=== PATIENT | male | born 1955 | race Hispanic/Latino ===

== ENCOUNTER → 2018-03-27 | Outpatient (CLI) | payer OTHER ==
[~2018-03-27] MED LIST: CLOT15CR62 TP; ESOM20CA39 PO; LEVO50TA11 PO; ONDA8TAB12 PO
== END | disposition home or self-care (01) ==
LOC: RAH 14:12
PROVIDERS: ATTEND Family Medicine
DX: M79.89 Other specified soft tissue disorders (principal)
CPT/HCPCS: 93971

== ENCOUNTER 2018-04-13 12:10 | Inpatient (IN) | payer OTHER ==
[~2018-04-13] VITALS: Ht 172.7 cm; Wt 123.3 kg
[2018-04-13 13:20] LABS: BASOPHILS % (AUTO) 0.2 % (0.0-5.0); EOSINOPHILS % (AUTO) 0.3 % (0.0-8.0); HEMATOCRIT 37.4 % (42-54); LYMPHOCYTES % (AUTO) 11.5 % (21.0-51.0); MEAN CORPUSCULAR HEMOGLOBIN 27.3 pg (27.0-33.0); MEAN CORPUSCULAR HGB CONC 32.6 g/dL (32.0-36.0); MEAN CORPUSCULAR VOLUME 83.7 fL (79-99); MONOCYTES % (AUTO) 5.2 % (3.0-13.0); NEUTROPHILS % (AUTO) 82.8 % (40.0-77.0); PLATELET COUNT (AUTO) 169 K/uL (130-400); RED BLOOD CELL COUNT(AUTO) 4.47 MIL/uL (4.50-6.20); RED CELL DISTRIBUTION WIDTH 15.9 % (11.0-15.5); WHITE BLOOD COUNT (AUTO) 6.4 K/uL (4.8-10.8)
[2018-04-13 13:36] LABS: CREATININE 1.9 mg/dL (0.5-1.5); INR 1.44 (0.85-1.15); PARTIAL THROMBOPLASTIN TIME 34.1 SEC (26.3-35.5); POTASSIUM 3.6 mmol/L (3.5-5.1)
[2018-04-13 13:38] LABS: BILIRUBIN,TOTAL 1.9 mg/dL (0.2-1.0); TOTAL PROTEIN, SERUM 4.8 g/dL (6.0-8.3)
[2018-04-13] MEDS ORDERED: SODIUM CHLORIDE 0.9% 1000ML 2,000 ML IV ONE (15:55)
[2018-04-13] MEDS ORDERED: SODIUM CHLORIDE 0.9% 1000ML 1,000 ML IV ONE (19:30)
[2018-04-13] MEDS: LEVOFLOXACIN 500 MG/D5W 100 ML 100 ML IV SCH (20:00)
[2018-04-13] MEDS: METRONIDAZOLE 500 MG TABLET PO SCH (21:00)
[2018-04-13] MEDS ORDERED: METRONIDAZOLE 500 MG TABLET ONE (21:40)
[2018-04-13] MEDS ORDERED: LEVOFLOXACIN 500 MG/D5W 100 ML 100 ML ONE (21:40)
[2018-04-13 22:46] VITALS: BP 147/78
[2018-04-14] MEDS ORDERED: LEVO50TA11 PO (01:27)
[2018-04-14] MEDS ORDERED: CLOT15CR62 TP (01:27)
[2018-04-14] MEDS ORDERED: ONDA8TAB12 PO (01:27)
[2018-04-14] MEDS ORDERED: ESOM20CA39 PO (01:27)
[2018-04-14 04:00] VITALS: BP 135/90
[2018-04-14 04:46] LABS: BASOPHILS % (AUTO) 0.7 % (0.0-5.0); EOSINOPHILS % (AUTO) 0.3 % (0.0-8.0); HEMATOCRIT 31.2 % (42-54); LYMPHOCYTES % (AUTO) 11.6 % (21.0-51.0); MEAN CORPUSCULAR HEMOGLOBIN 28.4 pg (27.0-33.0); MEAN CORPUSCULAR HGB CONC 33.9 g/dL (32.0-36.0); MEAN CORPUSCULAR VOLUME 83.7 fL (79-99); MONOCYTES % (AUTO) 4.9 % (3.0-13.0); NEUTROPHILS % (AUTO) 82.5 % (40.0-77.0); PLATELET COUNT (AUTO) 180 K/uL (130-400); RED BLOOD CELL COUNT(AUTO) 3.73 MIL/uL (4.50-6.20); RED CELL DISTRIBUTION WIDTH 16.1 % (11.0-15.5); WHITE BLOOD COUNT (AUTO) 6.6 K/uL (4.8-10.8)
[2018-04-14 05:01] LABS: ALBUMIN 1.6 g/dL (3.5-5.0); POTASSIUM 3.5 mmol/L (3.5-5.1); TOTAL PROTEIN, SERUM 4.1 g/dL (6.0-8.3)
[2018-04-14 05:14] LABS: BILIRUBIN,TOTAL 1.6 mg/dL (0.2-1.0); CREATININE 1.8 mg/dL (0.5-1.5)
[2018-04-14 07:00] VITALS: BP 140/82
[2018-04-14] MEDS ORDERED: ENOXAPARIN SODIUM 40 MG/0.4 ML SYRINGE SQ SCH (09:00)
[2018-04-14] MEDS: PANTOPRAZOLE SODIUM 40 MG TABLET.DR PO SCH (10:36)
[2018-04-14] MEDS: METRONIDAZOLE 500 MG TABLET PO SCH ×3 (10:36→22:06)
[2018-04-14] MEDS: FUROSEMIDE 10 MG/ML 2ML VIAL IV SCH ×2 (10:37→22:07)
[2018-04-14 11:00] VITALS: BP 116/74
[2018-04-14 16:00] VITALS: BP 117/70
[2018-04-14] MEDS ORDERED: DIATR MEGLU/DIATRIZOATE SODIUM 30 ML BOTTLE ONE (18:21)
[2018-04-14 19:15] VITALS: BP 156/87
[2018-04-14] MEDS: LEVOFLOXACIN 500 MG/D5W 100 ML 100 ML IV SCH (22:06)
[2018-04-15] VITALS (16 sets, daily range): BP systolic 100–161; BP diastolic 60–87
[2018-04-15 05:45] LABS: BASOPHILS % (AUTO) 0.2 % (0.0-5.0); EOSINOPHILS % (AUTO) 0.3 % (0.0-8.0); HEMATOCRIT 36.5 % (42-54); LYMPHOCYTES % (AUTO) 15.7 % (21.0-51.0); MEAN CORPUSCULAR HEMOGLOBIN 27.9 pg (27.0-33.0); MEAN CORPUSCULAR HGB CONC 33.4 g/dL (32.0-36.0); MEAN CORPUSCULAR VOLUME 83.7 fL (79-99); MONOCYTES % (AUTO) 5.4 % (3.0-13.0); NEUTROPHILS % (AUTO) 78.4 % (40.0-77.0); NUCLEATED RED BLOOD CELLS 0.1 % (0.0-0.19); PLATELET COUNT (AUTO) 154 K/uL (130-400); RED BLOOD CELL COUNT(AUTO) 4.35 MIL/uL (4.50-6.20); RED CELL DISTRIBUTION WIDTH 16.2 % (11.0-15.5); WHITE BLOOD COUNT (AUTO) 7.7 K/uL (4.8-10.8)
[2018-04-15 05:56] LABS: ALBUMIN 1.9 g/dL (3.5-5.0); BILIRUBIN,TOTAL 1.9 mg/dL (0.2-1.0); CREATININE 2.1 mg/dL (0.5-1.5); POTASSIUM 3.4 mmol/L (3.5-5.1); TOTAL PROTEIN, SERUM 4.9 g/dL (6.0-8.3)
[2018-04-15] MEDS ORDERED: PROPOFOL 10 MG/ML 20ML VIAL IV ONE (08:22)
[2018-04-15] MEDS ORDERED: ONDANSETRON HCL 4 MG/2 ML VIAL ONE ×2 (08:49→11:05)
[2018-04-15] MEDS ORDERED: POTASSIUM CHLORIDE 20 MEQ ERTAB PO SCH ×2 (09:30→12:30)
[2018-04-15] MEDS: PANTOPRAZOLE SODIUM 40 MG TABLET.DR PO SCH (10:37)
[2018-04-15] MEDS: METRONIDAZOLE 500 MG TABLET PO SCH ×3 (10:37→20:58)
[2018-04-15] MEDS: FUROSEMIDE 10 MG/ML 2ML VIAL IV SCH ×2 (10:38→20:58)
[2018-04-15] MEDS: HYDROCODONE/ACETAMINOPHEN 5/325 MG TAB PO PRN (10:39)
[2018-04-15] MEDS ORDERED: ONDANSETRON HCL MDV 20ML 2 MG/ML VIAL IVP PRN (11:00)
[2018-04-15] MEDS: CHOLESTYRAMINE PACKET 4 GM PACKET PO SCH (17:06)
[2018-04-15] MEDS: LEVOFLOXACIN 500 MG/D5W 100 ML 100 ML IV SCH (20:58)
[2018-04-16 03:50] VITALS: BP 128/81
[2018-04-16 08:26] VITALS: BP 102/60
[2018-04-16] MEDS ORDERED: POTASSIUM CHLORIDE 20 MEQ ERTAB PO SCH (09:00)
[2018-04-16] MEDS ORDERED: GLUCAGON 1MG KIT 1 MG ML IM PRN (09:30)
[2018-04-16] MEDS ORDERED: DEXTROSE 50%-WATER 50 ML DISP.SYRIN IV PRN (09:30)
[2018-04-16 09:33] LABS: ABG BASE EXCESS -8.3 mmol/L (-2.0-3.0); ABG HCO3 14.8 mmol/L (21.0-28.0); ABG OXYGEN SATURATION 99.1 % (95.0-99.0); ABG PCO2 25 mmHg (35-48)
[2018-04-16] MEDS ORDERED: IPRATROPIUM/ALBUTEROL SULFATE 3 ML SOLUTION IH ONE (09:40)
[2018-04-16 09:53] LABS: CARBON DIOXIDE 17 mmol/L (21-32); CHLORIDE 103 mmol/L (101-111); CREATINE KINASE, TOTAL 62 U/L (21-232); CREATININE 2.4 mg/dL (0.5-1.5); GLOMERULAR FILTR. RATE CALC 29 mL/min (>60); GLUCOSE,RANDOM 101 mg/dL (70-105); HEMATOCRIT 35.9 % (42-54); MEAN CORPUSCULAR HEMOGLOBIN 28.4 pg (27.0-33.0); MEAN CORPUSCULAR HGB CONC 33.8 g/dL (32.0-36.0); MEAN CORPUSCULAR VOLUME 84.3 fL (79-99); MYOGLOBIN 165 ng/mL (10-92); PLATELET COUNT (AUTO) 197 K/uL (130-400); POTASSIUM 3.8 mmol/L (3.5-5.1); RED BLOOD CELL COUNT(AUTO) 4.25 MIL/uL (4.50-6.20); RED CELL DISTRIBUTION WIDTH 16.3 % (11.0-15.5); SODIUM SERUM 134 mmol/L (136-145); TROPONIN I < 0.04 ng/mL (0.00-0.06); UREA NITROGEN, BLOOD 45 mg/dL (7-18)
[2018-04-16] MEDS: PANTOPRAZOLE SODIUM 40 MG TABLET.DR PO SCH (09:57)
[2018-04-16] MEDS: FUROSEMIDE 10 MG/ML 2ML VIAL IV SCH (09:58)
[2018-04-16] MEDS: METRONIDAZOLE 500 MG TABLET PO SCH ×3 (09:58→20:44)
[2018-04-16] MEDS: CHOLESTYRAMINE PACKET 4 GM PACKET PO SCH (09:59)
[2018-04-16] MEDS: SODIUM CHLORIDE 0.9% 1000ML 1,000 ML IV SCH (10:00)
[2018-04-16] MEDS ORDERED: IPRATROPIUM/ALBUTEROL SULFATE 3 ML SOLUTION IH SCH (12:00)
[2018-04-16 12:52] VITALS: BP 108/67
[2018-04-16] MEDS ORDERED: RENAL DOSE IV PRN (16:15)
[2018-04-16] MEDS ORDERED: SODIUM CHLORIDE 0.9% 1000ML 1,000 ML IV SCH (16:30)
[2018-04-16] MEDS ORDERED: VANCOMYCIN HCL 1 GM VIAL IV SCH (16:30)
[2018-04-16 16:55] VITALS: BP 117/86
[2018-04-16] MEDS: SODIUM BICARBONATE 650 MG TAB PO SCH ×2 (17:10→20:44)
[2018-04-16] MEDS: ALBUMIN (HUMAN) 25% 100 ML IV SCH ×2 (17:11→23:26)
[2018-04-16] MEDS ORDERED: VANCOMYCIN PROTOCOL PER PHARMACY IV SCH (19:15)
[2018-04-16 19:25] VITALS: BP 99/53
[2018-04-16 19:28] VITALS: BP 124/65
[2018-04-16] MEDS: LEVOFLOXACIN 500 MG/D5W 100 ML 100 ML IV SCH (20:44)
[2018-04-16] MEDS: LEVETIRACETAM 250 MG TABLET PO SCH (20:44)
[2018-04-16] MEDS: LOPERAMIDE HCL 2 MG CAP PO PRN (20:44)
[2018-04-16] MEDS: HYDROCODONE/ACETAMINOPHEN 5/325 MG TAB PO PRN (20:50)
[2018-04-17 00:22] VITALS: BP 110/60
[2018-04-17 03:25] VITALS: BP 96/60
[2018-04-17 05:07] LABS: HEMATOCRIT 26.2 % (42-54); MEAN CORPUSCULAR HEMOGLOBIN 28.5 pg (27.0-33.0); MEAN CORPUSCULAR HGB CONC 34.2 g/dL (32.0-36.0); MEAN CORPUSCULAR VOLUME 83.4 fL (79-99); NUCLEATED RED BLOOD CELLS 0.1 % (0.0-0.19); PLATELET COUNT (AUTO) 114 K/uL (130-400); RED BLOOD CELL COUNT(AUTO) 3.15 MIL/uL (4.50-6.20); RED CELL DISTRIBUTION WIDTH 16.1 % (11.0-15.5); WHITE BLOOD COUNT (AUTO) 8.5 K/uL (4.8-10.8)
[2018-04-17 05:29] LABS: ALBUMIN 2.2 g/dL (3.5-5.0); BILIRUBIN,TOTAL 1.8 mg/dL (0.2-1.0); CREATININE 2.5 mg/dL (0.5-1.5); MAGNESIUM 1.9 mg/dL (1.80-2.40); PHOSPHORUS 4.5 mg/dL (2.5-4.9); THYROID STIMULATING HORMONE 11.64 uIU/mL (0.36-3.74); TOTAL PROTEIN, SERUM 4.3 g/dL (6.0-8.3); URIC ACID 9.4 mg/dL (2.6-7.2)
[2018-04-17 05:34] LABS: % IRON SATURATION 127.2 % (30-44)
[2018-04-17] MEDS: ALBUMIN (HUMAN) 25% 100 ML IV SCH ×3 (05:51→22:05)
[2018-04-17] MEDS: SODIUM CHLORIDE 0.9% 1000ML 1,000 ML IV SCH ×3 (05:55→20:15)
[2018-04-17 06:39] LABS: SODIUM,URINE RANDOM < 15 mmol/l (40-220)
[2018-04-17 06:43] LABS: APPEARANCE,URINE Clear (CLEAR); BILIRUBIN,URINE Moderate (NEGATIVE); COLOR,URINE Dark Yellow (YELLOW); GLUCOSE, URINE (UA) Negative (NEGATIVE); KETONES,URINE 15 mg/dL (NEGATIVE); LEUKOCYTE ESTERASE ,URINE Trace (NEGATIVE); NITRATE,URINE Negative (NEGATIVE); OCCULT BLOOD,URINE Small (NEGATIVE); PH,URINE 5.5 (5.0-8.0); PROTEIN,URINE POS 1+ (NEGATIVE)
[2018-04-17 07:30] VITALS: BP 113/71
[2018-04-17 07:40] LABS: BACTERIA,URINE Rare /HPF (None Seen); SQUAMOUS EPITHELIAL CELL,UR 0-2 /HPF (0-2); WBC,URINE 0-1 /HPF (0-1)
[2018-04-17] MEDS: LACTOBACILLUS RHAMNOSUS GG 1 EACH CAP.SPRINK PO SCH (09:56)
[2018-04-17] MEDS: FOLIC ACID/VITAMIN B COMP W-C 1 MG CAPSULE PO SCH (09:56)
[2018-04-17] MEDS: PANTOPRAZOLE SODIUM 40 MG TABLET.DR PO SCH (09:56)
[2018-04-17] MEDS: METRONIDAZOLE 500 MG TABLET PO SCH ×3 (09:56→20:14)
[2018-04-17] MEDS: LEVETIRACETAM 250 MG TABLET PO SCH ×2 (09:56→20:14)
[2018-04-17] MEDS: SODIUM BICARBONATE 650 MG TAB PO SCH ×4 (09:57→20:14)
[2018-04-17 11:00] VITALS: BP 111/62
[2018-04-17 16:00] VITALS: BP 130/70
[2018-04-17] MEDS ORDERED: VANCOMYCIN 2.5 GM in SODIUM CHLORIDE 0.9% 500ML 500 ML IV ONE (17:00)
[2018-04-17 20:00] VITALS: BP 110/64
[2018-04-17] MEDS: LEVOFLOXACIN 500 MG/D5W 100 ML 100 ML IV SCH (20:14)
[2018-04-18] VITALS (8 sets, daily range): BP systolic 112–133; BP diastolic 65–76
[2018-04-18] MEDS: SODIUM CHLORIDE 0.9% 1000ML 1,000 ML IV SCH ×2 (04:06→14:52)
[2018-04-18] MEDS: LEVOTHYROXINE 75 MCG TABLET PO SCH (05:42)
[2018-04-18] MEDS: ALBUMIN (HUMAN) 25% 100 ML IV SCH ×3 (05:42→22:17)
[2018-04-18 06:06] LABS: BASOPHILS % (AUTO) 0.5 % (0.0-5.0); EOSINOPHILS % (AUTO) 0.8 % (0.0-8.0); HEMATOCRIT 24.9 % (42-54); LYMPHOCYTES % (AUTO) 13.5 % (21.0-51.0); MEAN CORPUSCULAR HEMOGLOBIN 28.5 pg (27.0-33.0); MEAN CORPUSCULAR VOLUME 83.7 fL (79-99); MONOCYTES % (AUTO) 4.8 % (3.0-13.0); NEUTROPHILS % (AUTO) 80.4 % (40.0-77.0); PLATELET COUNT (AUTO) 122 K/uL (130-400); RED BLOOD CELL COUNT(AUTO) 2.97 MIL/uL (4.50-6.20); RED CELL DISTRIBUTION WIDTH 16.4 % (11.0-15.5); WHITE BLOOD COUNT (AUTO) 6.2 K/uL (4.8-10.8)
[2018-04-18 06:16] LABS: CREATININE 1.8 mg/dL (0.5-1.5); POTASSIUM 3.3 mmol/L (3.5-5.1)
[2018-04-18] MEDS: FOLIC ACID/VITAMIN B COMP W-C 1 MG CAPSULE PO SCH (10:29)
[2018-04-18] MEDS: LEVETIRACETAM 250 MG TABLET PO SCH ×2 (10:29→21:18)
[2018-04-18] MEDS: PANTOPRAZOLE SODIUM 40 MG TABLET.DR PO SCH (10:29)
[2018-04-18] MEDS: SODIUM BICARBONATE 650 MG TAB PO SCH ×4 (10:29→21:19)
[2018-04-18] MEDS: LACTOBACILLUS RHAMNOSUS GG 1 EACH CAP.SPRINK PO SCH (10:29)
[2018-04-18] MEDS: METRONIDAZOLE 500 MG TABLET PO SCH ×3 (10:30→21:18)
[2018-04-18] MEDS ORDERED: HYDROCODONE/ACETAMINOPHEN 5/325 MG TAB PO PRN (11:30)
[2018-04-18] MEDS ORDERED: COMPOUND IV REFRIGERATED 1 EACH IVSOLN MISC PRN (12:15)
[2018-04-18] MEDS ORDERED: HEPARIN 25000 UNITS/250 ML D5W 250 ML IV PRN (13:30)
[2018-04-18] MEDS: VANCOMYCIN 1.5 GM in SODIUM CHLORIDE 0.9% 250 ML IV SCH (16:26)
[2018-04-18] MEDS: LEVOFLOXACIN 500 MG/D5W 100 ML 100 ML IV SCH (21:18)
[2018-04-19] VITALS: BP 128/73
[2018-04-19] MEDS: SODIUM CHLORIDE 0.9% 1000ML 1,000 ML IV SCH ×3 (00:03→20:52)
[2018-04-19 02:48] LABS: BASOPHILS % (AUTO) 0.2 % (0.0-5.0); EOSINOPHILS % (AUTO) 1.8 % (0.0-8.0); HEMATOCRIT 25.1 % (42-54); LYMPHOCYTES % (AUTO) 12.3 % (21.0-51.0); MEAN CORPUSCULAR HGB CONC 33.8 g/dL (32.0-36.0); MEAN CORPUSCULAR VOLUME 83.1 fL (79-99); MONOCYTES % (AUTO) 4.7 % (3.0-13.0); PLATELET COUNT (AUTO) 81 K/uL (130-400); RED BLOOD CELL COUNT(AUTO) 3.02 MIL/uL (4.50-6.20); RED CELL DISTRIBUTION WIDTH 16.1 % (11.0-15.5); WHITE BLOOD COUNT (AUTO) 5.7 K/uL (4.8-10.8)
[2018-04-19 03:02] LABS: BILIRUBIN,DIRECT 1.5 mg/dL (0.0-0.3); BILIRUBIN,TOTAL 2.5 mg/dL (0.2-1.0); CREATININE 1.5 mg/dL (0.5-1.5); POTASSIUM 3.1 mmol/L (3.5-5.1); TOTAL PROTEIN, SERUM 4.6 g/dL (6.0-8.3)
[2018-04-19] MEDS ORDERED: LIDOCAINE HCL-MPF 1% 2ML VIAL IVP PRN (03:45)
[2018-04-19] MEDS ORDERED: POTASSIUM CHLORIDE 10% ELIXIR 20 MEQ/15 ML UDCUP PO PRN (03:45)
[2018-04-19 04:00] VITALS: BP 112/65
[2018-04-19] MEDS: POTASSIUM CHLORIDE 20 MEQ ERTAB PO PRN ×3 (05:32→22:25)
[2018-04-19] MEDS: LEVOTHYROXINE 75 MCG TABLET PO SCH (05:32)
[2018-04-19] MEDS: ALBUMIN (HUMAN) 25% 100 ML IV SCH ×3 (05:37→22:25)
[2018-04-19 07:00] VITALS: BP 116/76
[2018-04-19 08:10] LABS: HEPATITIS A ANTIBODY IGM Negative (Negative); HEPATITIS B CORE IGM Negative (Negative); HEPATITIS Bs ANTIGEN SCREEN P Negative (Negative)
[2018-04-19] MEDS: SODIUM BICARBONATE 650 MG TAB PO SCH ×4 (10:10→19:53)
[2018-04-19] MEDS: LACTOBACILLUS RHAMNOSUS GG 1 EACH CAP.SPRINK PO SCH (10:10)
[2018-04-19] MEDS: PANTOPRAZOLE SODIUM 40 MG TABLET.DR PO SCH (10:10)
[2018-04-19] MEDS: LEVETIRACETAM 250 MG TABLET PO SCH ×2 (10:11→19:50)
[2018-04-19] MEDS: FOLIC ACID/VITAMIN B COMP W-C 1 MG CAPSULE PO SCH (10:11)
[2018-04-19] MEDS: METRONIDAZOLE 500 MG TABLET PO SCH ×3 (10:11→19:53)
[2018-04-19 11:00] VITALS: BP 105/57
[2018-04-19] MEDS ORDERED: PEG 3350/NA SULF,BICARB,CL/KCL 4000 ML SOLN PO SCH (15:00)
[2018-04-19 16:00] VITALS: BP 125/75
[2018-04-19] MEDS: VANCOMYCIN 1.5 GM in SODIUM CHLORIDE 0.9% 250 ML IV SCH ×2 (17:07→17:09)
[2018-04-19] MEDS: LEVOFLOXACIN 500 MG/D5W 100 ML 100 ML IV SCH (19:50)
[2018-04-19 20:35] VITALS: BP 141/80
[2018-04-20] VITALS (24 sets, daily range): BP systolic 66–141; BP diastolic 36–80
[2018-04-20] MEDS: LEVOTHYROXINE 75 MCG TABLET PO SCH ×2 (05:40→05:44)
[2018-04-20] MEDS: ALBUMIN (HUMAN) 25% 100 ML IV SCH ×3 (05:40→22:11)
[2018-04-20] MEDS: SODIUM CHLORIDE 0.9% 1000ML 1,000 ML IV SCH ×2 (05:44→17:18)
[2018-04-20 06:11] LABS: HEMATOCRIT 26.1 % (42-54); MEAN CORPUSCULAR HEMOGLOBIN 28.4 pg (27.0-33.0); MEAN CORPUSCULAR HGB CONC 34.2 g/dL (32.0-36.0); PLATELET COUNT (AUTO) 90 K/uL (130-400); RED BLOOD CELL COUNT(AUTO) 3.15 MIL/uL (4.50-6.20); RED CELL DISTRIBUTION WIDTH 16.5 % (11.0-15.5); WHITE BLOOD COUNT (AUTO) 4.8 K/uL (4.8-10.8)
[2018-04-20 06:28] LABS: ALBUMIN 3.4 g/dL (3.5-5.0); BILIRUBIN,TOTAL 2.7 mg/dL (0.2-1.0); CREATININE 1.2 mg/dL (0.5-1.5); POTASSIUM 3.2 mmol/L (3.5-5.1); TOTAL PROTEIN, SERUM 4.8 g/dL (6.0-8.3)
[2018-04-20 06:34] LABS: INR 2.06 (0.85-1.15); PARTIAL THROMBOPLASTIN TIME 66.1 SEC (26.3-35.5); PROTHROMBIN TIME 21.3 SEC (9.6-11.6)
[2018-04-20] MEDS: POTASSIUM CHLORIDE 20MEQ/100ML 100 ML IV PRN (06:39)
[2018-04-20 07:27] LABS: BAND NEUTROPHILS % (MANUAL) 1 % (0-2); EOSINOPHILS % (MANUAL) 2 % (1-6); LYMPHOCYTES % (MANUAL) 8 % (22-44); MAN.DIFF COMMENT-IMPRESSION MANUAL DIFFERENTIAL; MONOCYTES % (MANUAL) 3 % (2-9); PLATELET MORPHOLOGY COMMENT DECREASED; SEGMENTED NEUTROPHILS % 86 % (40-70)
[2018-04-20] MEDS ORDERED: LIDOCAINE HCL-MPF 2% 5ML VIAL ONE (08:03)
[2018-04-20] MEDS ORDERED: PROPOFOL 10 MG/ML 20ML VIAL IV ONE (08:03)
[2018-04-20] MEDS: METRONIDAZOLE 500 MG TABLET PO SCH ×3 (09:50→21:01)
[2018-04-20] MEDS: SODIUM BICARBONATE 650 MG TAB PO SCH ×4 (09:50→21:01)
[2018-04-20] MEDS: LACTOBACILLUS RHAMNOSUS GG 1 EACH CAP.SPRINK PO SCH (09:50)
[2018-04-20] MEDS: LEVETIRACETAM 250 MG TABLET PO SCH ×2 (09:50→21:01)
[2018-04-20] MEDS: FOLIC ACID/VITAMIN B COMP W-C 1 MG CAPSULE PO SCH (09:50)
[2018-04-20] MEDS: PANTOPRAZOLE SODIUM 40 MG TABLET.DR PO SCH (09:50)
[2018-04-20] MEDS: LEVOFLOXACIN 500 MG/D5W 100 ML 100 ML IV SCH (21:01)
[2018-04-21] VITALS (9 sets, daily range): BP systolic 100–131; BP diastolic 52–75
[2018-04-21] MEDS: SODIUM CHLORIDE 0.9% 1000ML 1,000 ML IV SCH ×2 (04:04→16:51)
[2018-04-21 05:18] LABS: HEMATOCRIT 24.5 % (42-54); MEAN CORPUSCULAR HEMOGLOBIN 28.2 pg (27.0-33.0); MEAN CORPUSCULAR HGB CONC 33.9 g/dL (32.0-36.0); MEAN CORPUSCULAR VOLUME 83.1 fL (79-99); PLATELET COUNT (AUTO) 70 K/uL (130-400); RED BLOOD CELL COUNT(AUTO) 2.94 MIL/uL (4.50-6.20); RED CELL DISTRIBUTION WIDTH 16.5 % (11.0-15.5); WHITE BLOOD COUNT (AUTO) 4.4 K/uL (4.8-10.8)
[2018-04-21 05:22] LABS: CREATININE 1.2 mg/dL (0.5-1.5)
[2018-04-21] MEDS: LEVOTHYROXINE 75 MCG TABLET PO SCH (06:46)
[2018-04-21] MEDS: ALBUMIN (HUMAN) 25% 100 ML IV SCH ×3 (06:46→21:12)
[2018-04-21] MEDS: METRONIDAZOLE 500 MG TABLET PO SCH ×3 (10:01→21:11)
[2018-04-21] MEDS: PANTOPRAZOLE SODIUM 40 MG TABLET.DR PO SCH (10:01)
[2018-04-21] MEDS: FOLIC ACID/VITAMIN B COMP W-C 1 MG CAPSULE PO SCH (10:01)
[2018-04-21] MEDS: LEVETIRACETAM 250 MG TABLET PO SCH ×2 (10:01→21:11)
[2018-04-21] MEDS: LACTOBACILLUS RHAMNOSUS GG 1 EACH CAP.SPRINK PO SCH (10:01)
[2018-04-21] MEDS: SODIUM BICARBONATE 650 MG TAB PO SCH ×3 (10:02→21:11)
[2018-04-21] MEDS: POTASSIUM CHLORIDE 10% ELIXIR 20 MEQ/15 ML UDCUP PO SCH ×3 (12:30→21:12)
[2018-04-21] MEDS: POTASSIUM CHLORIDE 20 MEQ ERTAB PO PRN ×2 (16:49→21:38)
[2018-04-21] MEDS: POTASSIUM CHLORIDE 20MEQ/100ML 100 ML IV PRN (16:58)
[2018-04-21] MEDS: CLINDAMYCIN HCL 150 MG CAP PO SCH (21:11)
[2018-04-22 03:00] VITALS: BP 118/68
[2018-04-22] MEDS: ALBUMIN (HUMAN) 25% 100 ML IV SCH ×3 (05:51→23:02)
[2018-04-22] MEDS: LEVOTHYROXINE 75 MCG TABLET PO SCH (05:51)
[2018-04-22] MEDS: CLINDAMYCIN HCL 150 MG CAP PO SCH ×3 (05:51→23:02)
[2018-04-22 06:19] LABS: HEMATOCRIT 23.3 % (42-54); MEAN CORPUSCULAR HEMOGLOBIN 28.4 pg (27.0-33.0); MEAN CORPUSCULAR HGB CONC 34.2 g/dL (32.0-36.0); MEAN CORPUSCULAR VOLUME 83.2 fL (79-99); PLATELET COUNT (AUTO) 70 K/uL (130-400); RED CELL DISTRIBUTION WIDTH 16.3 % (11.0-15.5); WHITE BLOOD COUNT (AUTO) 3.7 K/uL (4.8-10.8)
[2018-04-22 06:27] LABS: CREATININE 1.2 mg/dL (0.5-1.5); MAGNESIUM 1.7 mg/dL (1.80-2.40); POTASSIUM 3.4 mmol/L (3.5-5.1)
[2018-04-22 06:39] LABS: INR 2.31 (0.85-1.15); PROTHROMBIN TIME 23.9 SEC (9.6-11.6)
[2018-04-22 07:30] VITALS: BP 126/72
[2018-04-22 07:51] LABS: EOSINOPHILS % (MANUAL) 3 % (1-6); LYMPHOCYTES % (MANUAL) 16 % (22-44); MAN.DIFF COMMENT-IMPRESSION MANUAL DIFFERENTIAL; MONOCYTES % (MANUAL) 4 % (2-9); SEGMENTED NEUTROPHILS % 77 % (40-70)
[2018-04-22 07:58] LABS: ABG BASE EXCESS -2.2 mmol/L (-2.0-3.0); ABG HCO3 21.3 mmol/L (21.0-28.0); ABG OXYGEN SATURATION 95.2 % (95.0-99.0); ABG PCO2 33 mmHg (35-48)
[2018-04-22] MEDS ORDERED: MAGNESIUM SULFATE 2 GM in SODIUM CHLORIDE 0.9% 50 ML IV SCH (08:30)
[2018-04-22] MEDS: SODIUM CHLORIDE 0.9% 1000ML 1,000 ML IV SCH ×2 (08:52→09:08)
[2018-04-22] MEDS: LACTOBACILLUS RHAMNOSUS GG 1 EACH CAP.SPRINK PO SCH (09:07)
[2018-04-22] MEDS: METRONIDAZOLE 500 MG TABLET PO SCH ×3 (09:07→20:36)
[2018-04-22] MEDS: FOLIC ACID/VITAMIN B COMP W-C 1 MG CAPSULE PO SCH (09:07)
[2018-04-22] MEDS: LEVETIRACETAM 250 MG TABLET PO SCH ×2 (09:07→20:36)
[2018-04-22] MEDS: SODIUM BICARBONATE 650 MG TAB PO SCH ×4 (09:07→20:35)
[2018-04-22] MEDS: PANTOPRAZOLE SODIUM 40 MG TABLET.DR PO SCH (09:07)
[2018-04-22] MEDS: POTASSIUM CHLORIDE 10% ELIXIR 20 MEQ/15 ML UDCUP PO SCH (09:08)
[2018-04-22 11:00] VITALS: BP 114/64
[2018-04-22] MEDS: LOPERAMIDE HCL 2 MG CAP PO PRN ×2 (11:18→14:34)
[2018-04-22 11:47] LABS: INR 2.23 (0.85-1.15); PARTIAL THROMBOPLASTIN TIME 75.9 SEC (26.3-35.5)
[2018-04-22] MEDS: POTASSIUM CHLORIDE 20 MEQ ERTAB PO PRN ×2 (12:32→14:35)
[2018-04-22] MEDS ORDERED: MAGNESIUM 2GM PREMIX 50ML 50 ML IV SCH (14:00)
[2018-04-22 16:00] VITALS: BP 122/70
[2018-04-22] MEDS: MAGNESIUM 2GM PREMIX 50ML 50 ML IV SCH (16:04)
[2018-04-22 19:32] VITALS: BP 122/68
[2018-04-23] VITALS (9 sets, daily range): BP systolic 103–135; BP diastolic 53–76
[2018-04-23 05:51] LABS: EOSINOPHILS % (AUTO) 3.6 % (0.0-8.0); HEMATOCRIT 22.5 % (42-54); LYMPHOCYTES % (AUTO) 17.8 % (21.0-51.0); MEAN CORPUSCULAR HEMOGLOBIN 28.8 pg (27.0-33.0); MEAN CORPUSCULAR HGB CONC 34.3 g/dL (32.0-36.0); MEAN CORPUSCULAR VOLUME 84.1 fL (79-99); MONOCYTES % (AUTO) 7.6 % (3.0-13.0); NUCLEATED RED BLOOD CELLS 0.1 % (0.0-0.19); PLATELET COUNT (AUTO) 73 K/uL (130-400); RED BLOOD CELL COUNT(AUTO) 2.68 MIL/uL (4.50-6.20); RED CELL DISTRIBUTION WIDTH 16.8 % (11.0-15.5); WHITE BLOOD COUNT (AUTO) 3.6 K/uL (4.8-10.8)
[2018-04-23] MEDS: ALBUMIN (HUMAN) 25% 100 ML IV SCH ×3 (06:12→22:39)
[2018-04-23] MEDS: CLINDAMYCIN HCL 150 MG CAP PO SCH ×3 (06:12→22:39)
[2018-04-23] MEDS: LEVOTHYROXINE 75 MCG TABLET PO SCH (06:12)
[2018-04-23 06:22] LABS: INR 2.23 (0.85-1.15)
[2018-04-23 06:32] LABS: ALBUMIN 3.7 g/dL (3.5-5.0); BILIRUBIN,TOTAL 2.6 mg/dL (0.2-1.0); CREATININE 1.2 mg/dL (0.5-1.5); MAGNESIUM 1.8 mg/dL (1.80-2.40); PHOSPHORUS 2.1 mg/dL (2.5-4.9); POTASSIUM 3.7 mmol/L (3.5-5.1); TOTAL PROTEIN, SERUM 4.9 g/dL (6.0-8.3)
[2018-04-23 06:33] LABS: B-TYPE NATRIURETIC PEPTIDE 185 pg/mL (0-100)
[2018-04-23] MEDS ORDERED: PHYTONADIONE 10 MG/1 ML AMP SQ SCH (08:15)
[2018-04-23] MEDS: LACTOBACILLUS RHAMNOSUS GG 1 EACH CAP.SPRINK PO SCH (09:08)
[2018-04-23] MEDS: SODIUM BICARBONATE 650 MG TAB PO SCH ×4 (09:08→21:00)
[2018-04-23] MEDS: FOLIC ACID/VITAMIN B COMP W-C 1 MG CAPSULE PO SCH (09:08)
[2018-04-23] MEDS: LEVETIRACETAM 250 MG TABLET PO SCH ×2 (09:09→21:00)
[2018-04-23] MEDS: METRONIDAZOLE 500 MG TABLET PO SCH ×3 (09:09→21:00)
[2018-04-23] MEDS: PANTOPRAZOLE SODIUM 40 MG TABLET.DR PO SCH (09:09)
[2018-04-23] MEDS: LOPERAMIDE HCL 2 MG CAP PO PRN (09:09)
[2018-04-24] VITALS (16 sets, daily range): BP systolic 112–131; BP diastolic 62–78
[2018-04-24] MEDS ORDERED: DiphenhydrAMINE HCL 50 MG/ML VIAL IV SCH (02:30)
[2018-04-24] MEDS: ALBUMIN (HUMAN) 25% 100 ML IV SCH ×3 (05:27→21:51)
[2018-04-24] MEDS: LEVOTHYROXINE 75 MCG TABLET PO SCH (05:28)
[2018-04-24] MEDS: CLINDAMYCIN HCL 150 MG CAP PO SCH ×3 (05:28→21:55)
[2018-04-24 08:22] LABS: HEMATOCRIT 24.8 % (42-54); MEAN CORPUSCULAR HEMOGLOBIN 28.5 pg (27.0-33.0); MEAN CORPUSCULAR HGB CONC 33.8 g/dL (32.0-36.0); MEAN CORPUSCULAR VOLUME 84.3 fL (79-99); NUCLEATED RED BLOOD CELLS 0.1 % (0.0-0.19); PLATELET COUNT (AUTO) 61 K/uL (130-400); RED BLOOD CELL COUNT(AUTO) 2.94 MIL/uL (4.50-6.20); RED CELL DISTRIBUTION WIDTH 17.3 % (11.0-15.5); WHITE BLOOD COUNT (AUTO) 3.7 K/uL (4.8-10.8)
[2018-04-24 08:31] LABS: CREATININE 1.2 mg/dL (0.5-1.5); MAGNESIUM 1.9 mg/dL (1.80-2.40); POTASSIUM 3.9 mmol/L (3.5-5.1)
[2018-04-24 08:45] LABS: INR 1.73 (0.85-1.15); PARTIAL THROMBOPLASTIN TIME 45.1 SEC (26.3-35.5)
[2018-04-24] MEDS: SODIUM BICARBONATE 650 MG TAB PO SCH ×4 (09:00→21:13)
[2018-04-24] MEDS: PHYTONADIONE 10 MG/1 ML AMP SQ SCH (09:14)
[2018-04-24 11:31] LABS: INR 1.8 (0.85-1.15); PROTHROMBIN TIME 18.7 SEC (9.6-11.6)
[2018-04-24] MEDS ORDERED: FENTANYL CITRATE PF 50 MCG/1 ML 2ML VIAL ONE (13:54)
[2018-04-24] MEDS ORDERED: MIDAZOLAM HCL 1 MG/ML 2ML VIAL ONE (13:54)
[2018-04-24] MEDS: MAGNESIUM 2GM PREMIX 50ML 50 ML IV SCH (15:39)
[2018-04-24] MEDS: LEVETIRACETAM 250 MG TABLET PO SCH ×2 (15:40→21:13)
[2018-04-24] MEDS: FOLIC ACID/VITAMIN B COMP W-C 1 MG CAPSULE PO SCH (15:40)
[2018-04-24] MEDS: LACTOBACILLUS RHAMNOSUS GG 1 EACH CAP.SPRINK PO SCH (15:40)
[2018-04-24] MEDS: METRONIDAZOLE 500 MG TABLET PO SCH ×3 (15:40→21:13)
[2018-04-24] MEDS: PANTOPRAZOLE SODIUM 40 MG TABLET.DR PO SCH (15:43)
[2018-04-24] MEDS ORDERED: TRAMADOL HCL 50 MG TABLET PO PRN (16:00)
[2018-04-25 03:32] VITALS: BP 117/69
[2018-04-25] MEDS: ALBUMIN (HUMAN) 25% 100 ML IV SCH ×3 (05:22→21:31)
[2018-04-25 05:43] LABS: MEAN CORPUSCULAR HEMOGLOBIN 29.4 pg (27.0-33.0); MEAN CORPUSCULAR HGB CONC 35.1 g/dL (32.0-36.0); MEAN CORPUSCULAR VOLUME 83.9 fL (79-99); PLATELET COUNT (AUTO) 50 K/uL (130-400); RED BLOOD CELL COUNT(AUTO) 1.84 MIL/uL (4.50-6.20); RED CELL DISTRIBUTION WIDTH 17.1 % (11.0-15.5); WHITE BLOOD COUNT (AUTO) 2.4 K/uL (4.8-10.8)
[2018-04-25 05:46] LABS: HEMATOCRIT 15.5 % (42-54)
[2018-04-25 06:04] LABS: LYMPHOCYTES % (MANUAL) 28 % (22-44); MAN.DIFF COMMENT-IMPRESSION MANUAL DIFFERENTIAL; MONOCYTES % (MANUAL) 4 % (2-9); PLATELET MORPHOLOGY COMMENT DECREASED; SEGMENTED NEUTROPHILS % 68 % (40-70)
[2018-04-25] MEDS: LEVOTHYROXINE 75 MCG TABLET PO SCH (06:25)
[2018-04-25] MEDS: POTASSIUM CHLORIDE 20 MEQ ERTAB PO PRN (06:25)
[2018-04-25] MEDS: CLINDAMYCIN HCL 150 MG CAP PO SCH ×3 (06:25→21:31)
[2018-04-25 06:38] LABS: CREATININE 1.1 mg/dL (0.5-1.5); POTASSIUM 3.6 mmol/L (3.5-5.1)
[2018-04-25 08:00] VITALS: BP 135/78
[2018-04-25] MEDS: LACTOBACILLUS RHAMNOSUS GG 1 EACH CAP.SPRINK PO SCH (09:21)
[2018-04-25] MEDS: FOLIC ACID/VITAMIN B COMP W-C 1 MG CAPSULE PO SCH (09:21)
[2018-04-25] MEDS: PANTOPRAZOLE SODIUM 40 MG TABLET.DR PO SCH (09:21)
[2018-04-25] MEDS: PHYTONADIONE 10 MG/1 ML AMP SQ SCH (09:21)
[2018-04-25] MEDS: METRONIDAZOLE 500 MG TABLET PO SCH ×3 (09:21→20:32)
[2018-04-25] MEDS: LEVETIRACETAM 250 MG TABLET PO SCH ×2 (09:21→20:32)
[2018-04-25] MEDS: SODIUM BICARBONATE 650 MG TAB PO SCH ×4 (09:21→20:32)
[2018-04-25 12:00] VITALS: BP 135/78
[2018-04-25 12:26] LABS: HEMATOCRIT 25.9 % (42-54)
[2018-04-25 12:40] LABS: INR 1.8 (0.85-1.15); PROTHROMBIN TIME 18.7 SEC (9.6-11.6)
[2018-04-25 16:00] VITALS: BP 112/65
[2018-04-25 20:00] VITALS: BP 124/65
[2018-04-26] VITALS (8 sets, daily range): BP systolic 110–135; BP diastolic 52–77
[2018-04-26] MEDS: CLINDAMYCIN HCL 150 MG CAP PO SCH ×3 (05:09→21:29)
[2018-04-26] MEDS: LEVOTHYROXINE 75 MCG TABLET PO SCH (05:09)
[2018-04-26] MEDS: ALBUMIN (HUMAN) 25% 100 ML IV SCH (05:09)
[2018-04-26 05:53] LABS: HEMATOCRIT 24.8 % (42-54); MEAN CORPUSCULAR HEMOGLOBIN 28.8 pg (27.0-33.0); MEAN CORPUSCULAR HGB CONC 34.4 g/dL (32.0-36.0); MEAN CORPUSCULAR VOLUME 83.7 fL (79-99); PLATELET COUNT (AUTO) 67 K/uL (130-400); RED BLOOD CELL COUNT(AUTO) 2.96 MIL/uL (4.50-6.20); RED CELL DISTRIBUTION WIDTH 17.1 % (11.0-15.5)
[2018-04-26 06:08] LABS: POTASSIUM 3.4 mmol/L (3.5-5.1)
[2018-04-26] MEDS: POTASSIUM CHLORIDE 20 MEQ ERTAB PO PRN (06:39)
[2018-04-26] MEDS: SODIUM BICARBONATE 650 MG TAB PO SCH ×4 (09:19→21:29)
[2018-04-26] MEDS: FOLIC ACID/VITAMIN B COMP W-C 1 MG CAPSULE PO SCH (09:19)
[2018-04-26] MEDS: PHYTONADIONE 10 MG/1 ML AMP SQ SCH (09:19)
[2018-04-26] MEDS: PANTOPRAZOLE SODIUM 40 MG TABLET.DR PO SCH (09:19)
[2018-04-26] MEDS: LACTOBACILLUS RHAMNOSUS GG 1 EACH CAP.SPRINK PO SCH (09:19)
[2018-04-26] MEDS: METRONIDAZOLE 500 MG TABLET PO SCH ×3 (09:19→21:29)
[2018-04-26] MEDS: LEVETIRACETAM 250 MG TABLET PO SCH ×2 (09:19→21:29)
[2018-04-26 10:28] LABS: INR 1.88 (0.85-1.15); PARTIAL THROMBOPLASTIN TIME 74.5 SEC (26.3-35.5); PROTHROMBIN TIME 19.5 SEC (9.6-11.6)
[2018-04-26] MEDS: LOPERAMIDE HCL 2 MG CAP PO PRN (15:53)
[2018-04-27 03:24] VITALS: BP 116/68
[2018-04-27] MEDS: LEVOTHYROXINE 75 MCG TABLET PO SCH (05:22)
[2018-04-27] MEDS: CLINDAMYCIN HCL 150 MG CAP PO SCH ×2 (05:22→15:42)
[2018-04-27 06:10] LABS: HEMATOCRIT 27.7 % (42-54); MEAN CORPUSCULAR HGB CONC 34.5 g/dL (32.0-36.0); MEAN CORPUSCULAR VOLUME 84.2 fL (79-99); NUCLEATED RED BLOOD CELLS 0.1 % (0.0-0.19); PLATELET COUNT (AUTO) 90 K/uL (130-400); RED BLOOD CELL COUNT(AUTO) 3.29 MIL/uL (4.50-6.20); RED CELL DISTRIBUTION WIDTH 17.1 % (11.0-15.5); WHITE BLOOD COUNT (AUTO) 4.1 K/uL (4.8-10.8)
[2018-04-27 06:19] LABS: CREATININE 0.9 mg/dL (0.5-1.5); POTASSIUM 3.3 mmol/L (3.5-5.1)
[2018-04-27] MEDS: POTASSIUM CHLORIDE 20 MEQ ERTAB PO PRN (06:33)
[2018-04-27 06:34] LABS: INR 1.83 (0.85-1.15); PARTIAL THROMBOPLASTIN TIME 65.4 SEC (26.3-35.5)
[2018-04-27 07:00] VITALS: BP_SYST 122; BP_SYST 133; BP_DIAS 71; BP_DIAS 76
[2018-04-27 07:11] LABS: CRYPTOSPORIDIUM EIA STOOL Negative (Negative)
[2018-04-27] MEDS: PANTOPRAZOLE SODIUM 40 MG TABLET.DR PO SCH (09:25)
[2018-04-27] MEDS: LEVETIRACETAM 250 MG TABLET PO SCH (09:26)
[2018-04-27] MEDS: SODIUM BICARBONATE 650 MG TAB PO SCH ×3 (09:26→18:06)
[2018-04-27] MEDS: LACTOBACILLUS RHAMNOSUS GG 1 EACH CAP.SPRINK PO SCH (09:26)
[2018-04-27] MEDS: FOLIC ACID/VITAMIN B COMP W-C 1 MG CAPSULE PO SCH (09:26)
[2018-04-27] MEDS: METRONIDAZOLE 500 MG TABLET PO SCH ×2 (09:26→15:42)
[2018-04-27] MEDS: PHYTONADIONE 10 MG/1 ML AMP SQ SCH (15:53)
[2018-04-27 16:00] VITALS: BP 122/72
[2018-04-27 20:00] VITALS: BP 125/74
== END 2018-04-27 20:55 | disposition home or self-care (01) | DRG 441 ==
LOC: EDH 12:10 → EDHIP 20:00 → 3CH 21:34
PROVIDERS: ADMIT Hospitalist; ATTEND Hospitalist
PROC: 0DJD8ZZ Inspection of Lower Intestinal Tract, Via Natural or Artificial Opening Endoscopic (ICD-10-PCS; 2018-04-15)
PROC: 0DB98ZX Excision of Duodenum, Via Natural or Artificial Opening Endoscopic, Diagnostic (ICD-10-PCS; 2018-04-15)
PROC: 0DB78ZX Excision of Stomach, Pylorus, Via Natural or Artificial Opening Endoscopic, Diagnostic (ICD-10-PCS; 2018-04-15)
PROC: 0DB68ZX Excision of Stomach, Via Natural or Artificial Opening Endoscopic, Diagnostic (ICD-10-PCS; 2018-04-15)
PROC: 5A09357 Assistance with Respiratory Ventilation, Less than 24 Consecutive Hours, Continuous Positive Airway Pressure (ICD-10-PCS; 2018-04-16)
PROC: 30233L1 Transfusion of Nonautologous Fresh Plasma into Peripheral Vein, Percutaneous Approach (ICD-10-PCS; 2018-04-18)
PROC: 30233K1 Transfusion of Nonautologous Frozen Plasma into Peripheral Vein, Percutaneous Approach (ICD-10-PCS; 2018-04-18)
PROC: 0DBC8ZX Excision of Ileocecal Valve, Via Natural or Artificial Opening Endoscopic, Diagnostic (ICD-10-PCS; principal; 2018-04-20)
PROC: 0DBM8ZZ Excision of Descending Colon, Via Natural or Artificial Opening Endoscopic (ICD-10-PCS; 2018-04-20)
PROC: 0DBL8ZZ Excision of Transverse Colon, Via Natural or Artificial Opening Endoscopic (ICD-10-PCS; 2018-04-20)
PROC: 0FB03ZX Excision of Liver, Percutaneous Approach, Diagnostic (ICD-10-PCS; 2018-04-24)
DX: R16.0 Hepatomegaly, not elsewhere classified (principal); I81 Portal vein thrombosis; K76.7 Hepatorenal syndrome; N17.9 Acute kidney failure, unspecified; C78.7 Secondary malignant neoplasm of liver and intrahepatic bile duct; E87.2 Acidosis; L03.115 Cellulitis of right lower limb; E44.0 Moderate protein-calorie malnutrition; D68.9 Coagulation defect, unspecified; Z68.41 Body mass index [BMI] 40.0-44.9, adult; D61.818 Other pancytopenia; R18.8 Other ascites; E87.0 Hyperosmolality and hypernatremia; K52.9 Noninfective gastroenteritis and colitis, unspecified; K21.9 Gastro-esophageal reflux disease without esophagitis; K76.0 Fatty (change of) liver, not elsewhere classified; E86.0 Dehydration; F17.200 Nicotine dependence, unspecified, uncomplicated; D69.6 Thrombocytopenia, unspecified; E11.21 Type 2 diabetes mellitus with diabetic nephropathy; E11.22 Type 2 diabetes mellitus with diabetic chronic kidney disease; E03.9 Hypothyroidism, unspecified; E66.01 Morbid (severe) obesity due to excess calories; E83.42 Hypomagnesemia; E87.6 Hypokalemia; E87.70 Fluid overload, unspecified; F10.10 Alcohol abuse, uncomplicated; I12.9 Hypertensive chronic kidney disease with stage 1 through stage 4 chronic kidney disease, or unspecified chronic kidney disease; I95.1 Orthostatic hypotension; J44.9 Chronic obstructive pulmonary disease, unspecified; K29.70 Gastritis, unspecified, without bleeding; K64.9 Unspecified hemorrhoids; K74.60 Unspecified cirrhosis of liver; K80.20 Calculus of gallbladder without cholecystitis without obstruction; N18.9 Chronic kidney disease, unspecified; D12.4 Benign neoplasm of descending colon; K63.89 Other specified diseases of intestine; D12.3 Benign neoplasm of transverse colon; K63.5 Polyp of colon; K62.89 Other specified diseases of anus and rectum; R53.81 Other malaise; G47.33 Obstructive sleep apnea (adult) (pediatric); Z83.3 Family history of diabetes mellitus
CPT/HCPCS: 36415; 36430; 36600; 43239; 45380; 45385; 47000; 70450; 71045; 74176; 76700; 80048; 80053; 80074; 80076; 80202; 81001; 82140; 82270; 82330; 82378; 82435; 82550; 82607; 82728; 82746; 82803; 82947; 82948; 83540; 83550; 83605; 83630; 83735; 83874; 83880; 83935; 84100; 84132; 84295; 84300; 84443; 84484; 84550; 85014; 85018; 85025; 85027; 85060; 85610; 85730; 85732; 86334; 86850; 86900; 86901; 86922; 86927; 87046; 87177; 87324; 87328; 88304; 88305; 88307; 93005; 93306; 93880; 93971; 93975; 94640; 94660; 94664; 95819; 97039; A6250; J1200; J1644; J1650; J1940; J1956; J2250; J2405; J2704; J3010; J3370; J3430; J3475; J3480; J3490; J7030; J7040; P9016; P9017; P9046; Q9963

== ENCOUNTER 2018-05-13 10:22 | Inpatient (IN) | payer OTHER ==
[~2018-05-13] VITALS: Ht 172.7 cm; Wt 121.4 kg
[2018-05-13 10:41] LABS: BASOPHILS % (AUTO) 0.6 % (0.0-5.0); EOSINOPHILS % (AUTO) 0.2 % (0.0-8.0); HEMATOCRIT 29.2 % (42-54); LYMPHOCYTES % (AUTO) 12.6 % (21.0-51.0); MEAN CORPUSCULAR HEMOGLOBIN 29.2 pg (27.0-33.0); MEAN CORPUSCULAR HGB CONC 33.5 g/dL (32.0-36.0); MEAN CORPUSCULAR VOLUME 87.3 fL (79-99); MONOCYTES % (AUTO) 7.2 % (3.0-13.0); NEUTROPHILS % (AUTO) 79.4 % (40.0-77.0); NUCLEATED RED BLOOD CELLS 0.1 % (0.0-0.19); PLATELET COUNT (AUTO) 159 K/uL (130-400); RED BLOOD CELL COUNT(AUTO) 3.35 MIL/uL (4.50-6.20); RED CELL DISTRIBUTION WIDTH 19.3 % (11.0-15.5)
[2018-05-13 10:55] LABS: CREATININE 1.6 mg/dL (0.5-1.5)
[2018-05-13 11:09] LABS: ALBUMIN 3.2 g/dL (3.5-5.0); BILIRUBIN,TOTAL 12.2 mg/dL (0.2-1.0); TOTAL PROTEIN, SERUM 5.4 g/dL (6.0-8.3)
[2018-05-13 11:14] LABS: PARTIAL THROMBOPLASTIN TIME 72.4 SEC (26.3-35.5)
[2018-05-13 11:16] LABS: CREATINE KINASE, TOTAL 57 U/L (21-232); MYOGLOBIN 75 ng/mL (10-92); TROPONIN I < 0.04 ng/mL (0.00-0.06)
[2018-05-13 12:00] LABS: PROTHROMBIN TIME > 63.0 SEC (9.6-11.6)
[2018-05-13 12:01] LABS: INR > 7.00 (0.85-1.15)
[2018-05-13] MEDS ORDERED: LACTULOSE 20 GM/30 ML UDCUP ONE ×2 (12:32→13:14)
[2018-05-13] MEDS ORDERED: SODIUM CHLORIDE 0.9% 1000ML 1,000 ML IV ONE (13:14)
[2018-05-13] MEDS ORDERED: SODIUM CHLORIDE 0.9% 10 ML VIAL IVP PRN (14:45)
[2018-05-13] MEDS ORDERED: PHYTONADIONE 10 MG/1 ML AMP IM SCH (14:45)
[2018-05-13 16:00] VITALS: BP 137/71
[2018-05-13] MEDS: LACTULOSE 20 GM/30 ML UDCUP PR SCH ×2 (16:27→20:54)
[2018-05-13 20:00] VITALS: BP 146/81
[2018-05-14] VITALS: BP 136/76
[2018-05-14 04:00] VITALS: BP 153/95
[2018-05-14 06:08] LABS: HEMATOCRIT 28.9 % (42-54); MEAN CORPUSCULAR HEMOGLOBIN 28.7 pg (27.0-33.0); MEAN CORPUSCULAR HGB CONC 32.7 g/dL (32.0-36.0); MEAN CORPUSCULAR VOLUME 87.8 fL (79-99); NUCLEATED RED BLOOD CELLS 0.1 % (0.0-0.19); PLATELET COUNT (AUTO) 130 K/uL (130-400); RED CELL DISTRIBUTION WIDTH 19.2 % (11.0-15.5); WHITE BLOOD COUNT (AUTO) 8.3 K/uL (4.8-10.8)
[2018-05-14 06:21] LABS: ALBUMIN 2.8 g/dL (3.5-5.0); BILIRUBIN,TOTAL 11.8 mg/dL (0.2-1.0); CREATININE 2.2 mg/dL (0.5-1.5); TOTAL PROTEIN, SERUM 4.7 g/dL (6.0-8.3)
[2018-05-14 06:27] LABS: POTASSIUM 2.8 mmol/L (3.5-5.1)
[2018-05-14] MEDS ORDERED: LACT1TAB22 PO (07:00)
[2018-05-14] MEDS ORDERED: FOLI0.8T22 PO (07:00)
[2018-05-14] MEDS ORDERED: LOPE-162 PO (07:00)
[2018-05-14] MEDS ORDERED: LEVE250T2 PO (07:00)
[2018-05-14] MEDS ORDERED: LIDOCAINE HCL-MPF 1% 2ML VIAL IVP PRN ×2 (07:45→21:30)
[2018-05-14] MEDS ORDERED: ALBUMIN (HUMAN) 25% 100 ML IV ONE (07:45)
[2018-05-14] MEDS ORDERED: POTASSIUM CHLORIDE 10MEQ/100ML 100 ML IV PRN (07:45)
[2018-05-14 08:00] VITALS: BP 127/77
[2018-05-14] MEDS: LACTULOSE 20 GM/30 ML UDCUP PR SCH ×3 (08:19→21:08)
[2018-05-14] MEDS: SODIUM CHLORIDE 0.9% 1000ML 1,000 ML IV SCH (08:19)
[2018-05-14 12:00] VITALS: BP 131/72
[2018-05-14 14:04] LABS: INR > 7.00 (0.85-1.15); PROTHROMBIN TIME > 63.0 SEC (9.6-11.6)
[2018-05-14] MEDS ORDERED: PHYTONADIONE 10 MG/1 ML AMP IM SCH (14:15)
[2018-05-14 16:00] VITALS: BP 138/75
[2018-05-14 19:41] VITALS: BP 147/88
[2018-05-14] MEDS ORDERED: POTASSIUM CHLORIDE 20MEQ/100ML 100 ML IV ONE (21:12)
[2018-05-15 00:07] VITALS: BP 141/79
[2018-05-15] MEDS: SODIUM CHLORIDE 0.9% 1000ML 1,000 ML IV SCH (00:10)
[2018-05-15] MEDS ORDERED: POTASSIUM CHLORIDE 20MEQ/100ML 100 ML IV ONE (00:15)
[2018-05-15 03:46] VITALS: BP 126/76
[2018-05-15 06:12] LABS: CREATININE 2.9 mg/dL (0.5-1.5); POTASSIUM 3.2 mmol/L (3.5-5.1)
[2018-05-15] MEDS: POTASSIUM CHLORIDE 20MEQ/100ML 100 ML IV PRN ×2 (06:39→09:45)
[2018-05-15 06:41] LABS: INR > 7.00 (0.85-1.15)
[2018-05-15 06:42] LABS: PROTHROMBIN TIME > 63.0 SEC (9.6-11.6)
[2018-05-15] MEDS ORDERED: PHYTONADIONE 10 MG/1 ML AMP SQ SCH ×2 (06:45→10:15)
[2018-05-15 07:30] VITALS: BP 122/66
[2018-05-15] MEDS: LACTULOSE 20 GM/30 ML UDCUP PR SCH ×4 (09:45→21:00)
[2018-05-15 11:00] VITALS: BP 119/71
[2018-05-15 16:00] VITALS: BP 120/49
[2018-05-15 20:00] VITALS: BP 127/71
[2018-05-15] MEDS ORDERED: LACTULOSE 20 GM/30 ML UDCUP PR ONE (21:00)
[2018-05-16 00:02] VITALS: BP 133/72
[2018-05-16 03:00] VITALS: BP 121/57
[2018-05-16 07:30] VITALS: BP 123/69
[2018-05-16] MEDS ORDERED: PHARMACY COMMUNICATION MISC SCH (08:15)
[2018-05-16 11:00] VITALS: BP 130/73
[2018-05-16] MEDS: LACTULOSE 20 GM/30 ML UDCUP PO SCH ×4 (11:36→21:00)
[2018-05-16 16:00] VITALS: BP 128/72
[2018-05-17 04:29] VITALS: BP 107/82
[2018-05-17 08:00] VITALS: BP 108/58
== END 2018-05-17 16:00 | disposition expired | DRG 441 ==
LOC: EDH 10:22 → OBSVTOIN 13:58 → EDHIP 13:58 → 3BH 16:07
PROVIDERS: ADMIT Internal Medicine; ATTEND Internal Medicine
PROC: 5A09357 Assistance with Respiratory Ventilation, Less than 24 Consecutive Hours, Continuous Positive Airway Pressure (ICD-10-PCS; principal; 2018-05-15)
PROC: 5A09357 Assistance with Respiratory Ventilation, Less than 24 Consecutive Hours, Continuous Positive Airway Pressure (ICD-10-PCS; 2018-05-16)
PROC: 5A09357 Assistance with Respiratory Ventilation, Less than 24 Consecutive Hours, Continuous Positive Airway Pressure (ICD-10-PCS; 2018-05-17)
DX: K72.90 Hepatic failure, unspecified without coma (principal); K76.7 Hepatorenal syndrome; J96.00 Acute respiratory failure, unspecified whether with hypoxia or hypercapnia; C78.7 Secondary malignant neoplasm of liver and intrahepatic bile duct; Z68.41 Body mass index [BMI] 40.0-44.9, adult; K74.60 Unspecified cirrhosis of liver; I10 Essential (primary) hypertension; E78.5 Hyperlipidemia, unspecified; E11.29 Type 2 diabetes mellitus with other diabetic kidney complication; E03.9 Hypothyroidism, unspecified; E66.9 Obesity, unspecified; Z66 Do not resuscitate; R16.0 Hepatomegaly, not elsewhere classified; Z51.5 Encounter for palliative care; Z87.891 Personal history of nicotine dependence; Z91.14 Patient's other noncompliance with medication regimen
CPT/HCPCS: 36415; 80048; 80053; 82140; 82550; 83874; 84484; 85025; 85027; 85610; 85730; 93005; 94660; A4351; J3430; J3480; J3490; J7030; P9046